=== PATIENT | female | born 1945 | race Caucasian/White ===

== ENCOUNTER 2017-11-24 08:13 | Day surgery (SDC) | payer OTHER, MEDICAID ==
[2017-11-24] MEDS ORDERED: D5 LR 1000 ML 1,000 ML IV ONE (08:21)
[2017-11-24] MEDS ORDERED: DIPRIVAN VIAL 20 ML ONE (09:54)
[2017-11-24 10:41] VITALS: BP 103/67
== END 2017-11-24 10:41 | disposition home or self-care (01) ==
LOC: SURG1 08:13
PROVIDERS: ATTEND Internal Medicine Gastroenterology
PROC: 0DBL8ZX Excision of Transverse Colon, Via Natural or Artificial Opening Endoscopic, Diagnostic (ICD-10-PCS; principal; 2017-11-24 13:00)
PROC: 0DBN8ZX Excision of Sigmoid Colon, Via Natural or Artificial Opening Endoscopic, Diagnostic (ICD-10-PCS; principal; 2017-11-24 13:00)
PROC: 0DJD8ZZ Inspection of Lower Intestinal Tract, Via Natural or Artificial Opening Endoscopic (ICD-10-PCS; principal; 2017-11-24 13:00)
DX: K63.5 Polyp of colon (principal); K57.30 Diverticulosis of large intestine without perforation or abscess without bleeding; K64.0 First degree hemorrhoids; Z86.010 Personal history of colon polyps; D12.3 Benign neoplasm of transverse colon; D12.5 Benign neoplasm of sigmoid colon
CPT/HCPCS: A4217; J3490; J7120